=== PATIENT | female | born 1935 | race Caucasian/White ===

== ENCOUNTER 2018-07-16 16:37 | Inpatient (IN) ==
--- NOTE | 2018-07-16 17:22 | XR ---
EXAM DATE: 07/16/2018 5:07 PM EDT AGE/SEX: 83 years / Female INDICATIONS: Short of breath for 2 days. CLINICAL DATA: This is the patient's initial encounter. Patient reports that signs and symptoms have been present for 2 days and indicates a pain score of 0/10. MEDICAL/SURGICAL HISTORY: Diabetes mellitus type II. Hiatal hernia. Hypertension. . Hiatal he rnia repair. COMPARISON: No prior exams available for comparison. FINDINGS: Mild diffuse interstitial prominence and senescent changes. Mild airspace disease at the left lung ba se. Cardiac silhouette is mildly enlarged. Pulmonary vascularity is within normal limits. Bony thorax is intact. CONCLUSION: 1. Senescent changes with mild airspace disease at the left lung base which may reflect atelectasis. 2. Compensated cardiomegaly. Electronically signed by: Krishna Ramon MD 07/16/2018 5:21 PM EDT
[2018-07-16 17:44] LABS: Baso # (Auto) 0.1 th/mm3 (0.0-0.2); Baso % (Auto) 0.7 % (0.0-2.0); Eos # (Auto) 0.1 th/mm3 (0.0-0.4); Eos % (Auto) 1.4 % (0.0-4.0); Hematocrit 32.5 % (35.0-46.0); Hemoglobin 10.7 gm/dL (11.6-15.3); Lymph # (Auto) 1.6 th/mm3 (1.0-4.8); Lymph % (Auto) 19.8 % (9.0-44.0); Mean Corpuscular Hemoglobin 28.6 pg (27.0-34.0); Mean Corpuscular Volume 86.7 fL (80.0-100.0); Mean Platelet Volume 8.6 fL (7.0-11.0); Mono # (Auto) 0.8 th/mm3 (0.0-0.9); Mono % (Auto) 9.6 % (0.0-8.0); Neut # (Auto) 5.4 th/mm3 (1.8-7.7); Neut % (Auto) 68.5 % (16.0-70.0); Platelet Count 307 th/mm3 (150-450); Red Blood Count 3.75 mil/mm3 (4.00-5.30); Red Cell Distribution Width 14.3 % (11.6-17.2); White Blood Count 7.9 th/mm3 (4.0-11.0)
--- NOTE | 2018-07-16 17:44 | ED ---
HPI General Chief complaint: Recheck/Abnormal Lab/Rx Stated complaint: sent Time Seen by Provider: 07/16/18 16:59 History of Present Illness HPI narrative: 83-year-old female brought in by her granddaughter, sent in by a primary care physician for evaluation of A. fib with RVR. The patient reports that she believes she was diagnosed with A. fib about a year ago, however is not on any anticoagulants or any medications for rate control. She is from [place] and is here visiting her family. She has no local physicians. She states that for the last 2 days or so she has been having generalized weakness, dyspnea at rest worse with exertion, and orthopnea. She does take Lasix at home. She did note some bilateral lower extremity edema, however it seems improved today. The patient's granddaughter took her to her own primary care physician where they did an EKG and noted her to be in A. fib with RVR with a rate of 130s. Patient denies fevers or recent illness. No cough or hemoptysis. Related Data Home Medications Medication Instructions Recorded Confirmed amlodipine mg PO DAILY 07/16/18 atorvastatin 20 mg PO DAILY 07/16/18 07/16/18 furosemide 20 mg PO DAILY 07/16/18 07/16/18 potassium chloride 20 meq PO DAILY 07/16/18 07/16/18 Allergies Allergy/AdvReac Type Severity Reaction Status Date / Time oxycodone AdvReac Severe Vomiting Verified 07/16/18 17:34 Review of Systems ROS: all other systems reviewed are negative [facility] Medical History Medical History Diabetes (Acute) HTN (hypertension) (Acute) High cholesterol (Acute) Social History Social History Substance History: No History of Abuse Smoking Status: Never smoker How Often Do You Have a Drink Containing Alcohol: Never Recent Travel in [facility] within the Last 8 Weeks: No Recent Out of Country Travel within the Last 8 Weeks: No Immunization History Tetanus Immunization: >5 Years Exam Narrative Exam Narrative: GENERAL: Well-developed, well-nourished, pleasant, sitting comfortably on stretcher, no apparent distress. SKIN: Focused skin assessment warm/dry. HEAD: Atraumatic. Normocephalic. EYES: Pupils equal and round. No scleral icterus. No injection or drainage. ENT: No nasal bleeding or discharge. Mucous membranes pink and moist. NECK: Trachea midline. No JVD. CARDIOVASCULAR: Irregularly irregular, tachycardic, rate 130s. RESPIRATORY: No accessory muscle use. Clear to auscultation. Breath sounds equal bilaterally. GASTROINTESTINAL: Abdomen soft, non-tender, nondistended. MUSCULOSKELETAL: No obvious deformities. No clubbing. No cyanosis. No edema. NEUROLOGICAL: Awake and alert. No obvious cranial nerve deficits. Motor grossly within normal limits. Normal speech. PSYCHIATRIC: Appropriate mood and affect; insight and judgment normal. Course Initial Documented Vital Signs Temperature 97.9 F 07/16/18 16:49 Pulse Rate 133 H 07/16/18 16:49 Respiratory Rate 20 07/16/18 16:49 Blood Pressure 130/83 07/16/18 16:49 Pulse Oximetry 94 L 07/16/18 16:49 Last Documented Vital Signs Temperature 97.9 F 07/16/18 16:49 Pulse Rate 115 H 07/16/18 20:25 Respiratory Rate 18 07/16/18 20:25 Blood Pressure 145/94 H 07/16/18 20:25 Pulse Oximetry 96 07/16/18 20:25 Medical Decision Making MDM Narrative Medical decision making narrative: Labs, vitals, and imaging studies were reviewed and were reviewed with the patient and the patient's granddaughter. Labs are remarkable for slight renal insufficiency which the patient reports she is well aware of. She also has a slight anemia with a hemoglobin of 10.7. BNP is in the 500s. CT pulmonary angiogram: 1. No pulmonary embolism 2. Small right lung nodules can be followed if persistent following resolution of the patient's acute findings 3. Moderate bilateral pleural effusions, right greater than left. The patient and the patient's granddaughter were made aware of all findings and were provided a copy of the CT pulmonary angiogram report. The patient was initially given 10 mg of IV Cardizem as she presented with A. fib with RVR with a rate in the 130s. Her rate improved to about 100-110 bpm. On reassessment, the patient's heart rate returned once again to 130s. She will be given another dose of 10 mg of IV Cardizem followed by an oral dose of long-acting Cardizem. She will also be given 40 mg of IV Lasix. She will be admitted for further treatment and evaluation of A. fib with RVR, bilateral pleural effusions, shortness of breath. Case discussed with hospitalist Dr. Witt who will admit the patient to her service. Medical Screen Exam Complete: Yes Emergency Medical Condition: Yes Lab Data Result diagrams: 07/16/18 17:20 07/16/18 17:20 Lab Results 07/16/18 07/16/18 07/16/18 Range/Units 17:20 17:20 17:20 WBC 7.9 (4.0-11.0) th/mm3 RBC 3.75 L (4.00-5.30) mil/mm3 Hgb 10.7 L (11.6-15.3) gm/dL Hct 32.5 L (35.0-46.0) % MCV 86.7 (80.0-100.0) fL MCH 28.6 (27.0-34.0) pg MCHC 33.0 (32.0-36.0) % RDW 14.3 (11.6-17.2) % Plt Count 307 (150-450) th/mm3 MPV 8.6 (7.0-11.0) fL Neut % (Auto) 68.5 (16.0-70.0) % Lymph % (Auto) 19.8 (9.0-44.0) % [place] % (Auto) 9.6 H (0.0-8.0) % Eos % (Auto) 1.4 (0.0-4.0) % Baso % (Auto) 0.7 (0.0-2.0) % Neut # (Auto) 5.4 (1.8-7.7) th/mm3 Lymph # (Auto) 1.6 (1.0-4.8) th/mm3 [place] # (Auto) 0.8 (0.0-0.9) th/mm3 Eos # (Auto) 0.1 (0.0-0.4) th/mm3 Baso # (Auto) 0.1 (0.0-0.2) th/mm3 WBC Differential . Differential Comment Auto diff final PT 10.6 (9.8-11.6) sec INR 1.0 Ratio APTT 25.0 (24.3-30.1) sec Sodium 141 (136-145) meq/L Potassium 3.7 (3.5-5.1) meq/L Chloride 104 (98-107) meq/L Carbon Dioxide 25.3 (21.0-32.0) meq/L Anion Gap 12 (5-15) meq/L BUN 18 (7-18) mg/dL Creatinine 1.40 H (0.50-1.00) mg/dL Estimated GFR 36 L (>89) mL/min Random Glucose 118 H (74-106) mg/dL Calcium 8.7 (8.5-10.1) mg/dL Total Bilirubin 0.5 (0.2-1.0) mg/dL AST 26 (15-37) U/L ALT 41 (10-53) U/L Alkaline Phosphatase 114 (45-117) U/L Total Creatine Kinase 102 (26-192) U/L CK-MB (CK-2) 3.0 (0.5-3.6) ng/mL Troponin I Less than 0.02 L (0.02-0.05) ng/mL B-Natriuretic Peptide (0-100) pg/mL Total Protein 8.2 (6.4-8.2) g/dL Albumin 3.8 (3.4-5.0) g/dL Lipase 39 L (73-393) U/L 07/16/18 Range/Units 17:20 WBC (4.0-11.0) th/mm3 RBC (4.00-5.30) mil/mm3 Hgb (11.6-15.3) gm/dL Hct (35.0-46.0) % MCV (80.0-100.0) fL MCH (27.0-34.0) pg MCHC (32.0-36.0) % RDW (11.6-17.2) % Plt Count (150-450) th/mm3 MPV (7.0-11.0) fL Neut % (Auto) (16.0-70.0) % Lymph % (Auto) (9.0-44.0) % [place] % (Auto) (0.0-8.0) % Eos % (Auto) (0.0-4.0) % Baso % (Auto) (0.0-2.0) % Neut # (Auto) (1.8-7.7) th/mm3 Lymph # (Auto) (1.0-4.8) th/mm3 [place] # (Auto) (0.0-0.9) th/mm3 Eos # (Auto) (0.0-0.4) th/mm3 Baso # (Auto) (0.0-0.2) th/mm3 WBC Differential Differential Comment PT (9.8-11.6) sec INR Ratio APTT (24.3-30.1) sec Sodium (136-145) meq/L Potassium (3.5-5.1) meq/L Chloride (98-107) meq/L Carbon Dioxide (21.0-32.0) meq/L Anion Gap (5-15) meq/L BUN (7-18) mg/dL Creatinine (0.50-1.00) mg/dL Estimated GFR (>89) mL/min Random Glucose (74-106) mg/dL Calcium (8.5-10.1) mg/dL Total Bilirubin (0.2-1.0) mg/dL AST (15-37) U/L ALT (10-53) U/L Alkaline Phosphatase (45-117) U/L Total Creatine Kinase (26-192) U/L CK-MB (CK-2) (0.5-3.6) ng/mL Troponin I (0.02-0.05) ng/mL B-Natriuretic Peptide 578 H (0-100) pg/mL Total Protein (6.4-8.2) g/dL Albumin (3.4-5.0) g/dL Lipase (73-393) U/L Imaging Data Radiologist's impression: Chest X-Ray 07/16/18 17:07 CONCLUSION: 1. Senescent changes with mild airspace disease at the left lung base which may reflect atelectasis. 2. Compensated cardiomegaly. Chest CTA 07/16/18 18:22 CONCLUSION: 1. No pulmonary embolism 2. Small right lung nodules can be followed if persistent following resolution of the patient's acute findings ECG Data Attestation: I personally reviewed and interpreted this ECG as follows: (A. fib , rate 137, normal axis, normal intervals, nonspecific ST and T wave abnormalities.) Discharge Plan Discharge Disposition Patient Disposition: 30 Still Patient Discharge Details Diagnosis: Atrial fibrillation with RVR, Pleural effusion, Shortness of breath, Pulmonary nodule Physicians Team ED Provider: Hugh Justin Primary Care Provider: Primary Care Physici,No Rxs /Orders / Referrals /Forms Prescriptions: No Action atorvastatin 20 mg Tablet 20 mg PO DAILY RF: 0 amlodipine 2.5 mg Tablet PO DAILY RF: 0 furosemide 20 mg Tablet 20 mg PO DAILY RF: 0 potassium chloride 20 mEq Tablet Extended Release 20 meq PO DAILY RF: 0 Status ED Status: With Doctor
[2018-07-16 17:52] LABS: Prothrombin Time 10.6 sec (9.8-11.6)
[2018-07-16 18:02] LABS: Albumin 3.8 g/dL (3.4-5.0); Anion Gap 12 meq/L (5-15); Aspartate Aminotransferase 26 U/L (15-37); Blood Urea Nitrogen 18 mg/dL (7-18); Calcium 8.7 mg/dL (8.5-10.1); Carbon Dioxide 25.3 meq/L (21.0-32.0); Chloride 104 meq/L (98-107); Glomerular Filtration Rate 36 mL/min (>89); Glucose,Random 118 mg/dL (74-106); Lipase 39 U/L (73-393); Potassium 3.7 meq/L (3.5-5.1); Sodium 141 meq/L (136-145)
[2018-07-16 18:07] LABS: Alanine Aminotransferase 41 U/L (10-53); Alkaline Phosphatase 114 U/L (45-117); Creatine Kinase 102 U/L (26-192); Total Protein 8.2 g/dL (6.4-8.2)
--- NOTE | 2018-07-16 19:51 | CT ---
EXAM DATE: 07/16/2018 6:42 PM EDT AGE/SEX: 83 years / Female INDICATIONS: Shortness of breath. CLINICAL DATA: This is the patient's initial encounter. Patient reports that signs and symptoms have been present for 1 day and indicates a pain score of 2/10. MEDICAL/SURGICAL HISTORY: Diabetes. Hypertension. None. RADIATION DOSE: 10.67 CTDI (mGy) COMPARISON: No prior exams available for comparison. TECHNIQUE: Volumetric scanning was performed using a multi-row detector CT scanner during bolus infu asif of 45 ml Visipaque 320 (iodixanol) nonionic water-soluble contrast as a single exam dose. The d sowmya was post processed with a variety of visualization algorithms including full volume maximum inten sity projection and sliding thin slab reformation. Using automated exposure control and adjustment o f the mA and/or kV according to patient size, radiation dose was kept as low as reasonably achievable to obtain optimal diagnostic quality images. DICOM format image data is available electronically fo r review and comparison. FINDINGS: Pulmonary Arteries: No filling defects are seen in the pulmonary arteries out to the subsegmental ve ssels. The left and right pulmonary arteries are normal in diameter. Lung: Compressive atelectasis in the lung bases adjacent to effusions. 10 mm nodular density in the medial central right lung base. 7-8 mm nodule in the posterior right upper lobe Effusion: Moderate bilateral larger on the right than the left Mediastinum: Cardiac enlargement. Atherosclerotic calcifications, including within the coronaries. N o evidence of adenopathy or mass. Other: The axilla is unremarkable. CONCLUSION: 1. No pulmonary embolism 2. Small right lung nodules can be followed if persistent following resolution of the patient's acut e findings Electronically signed by: José Miguel Suresh MD 07/16/2018 7:49 PM EDT
[2018-07-16] MEDS ORDERED: dilTIAZem CD 120 MG Capsule PO ONE (20:21)
[2018-07-16] MEDS ORDERED: Acetaminophen 325 MG Tablet PO PRN (20:47)
[2018-07-16] MEDS ORDERED: Bisacodyl 10 MG Supp RECTAL PRN (20:47)
--- NOTE | 2018-07-16 21:09 | P.HPIM ---
History of Present Illness Primary Care Physician: No Primary Care Physician History of Present Illness: This is an 83-year-old female with a PMH of HTN and Hyperlipidemia who was referred to the ER from her doctor's office for A. fib with RVR. Pt reports c/ o of SOB and generalized weakness for 2-3 days, here visiting granddaughter who noted lower extremity edema and progressive SOB. Seen by Dr. Torres in office today and found to have A-fib w/ RVR, HR 120's. Pt reports h/o A-fib back in December 2017 while in [facility] she was found to be in A-fib at her doctor's office, however had resolved by the time she got to the ER, not on any medications. Denies chest pain. On arrival, BP 130/83, HR 133, O2 sat 94% on RA, Afebrile. CBC unremarkable. INR 1.0. Creatinine 1.40, no previous labs for comparison. Troponin negative. BNP 578. CXR with atelectasis left lung base, cardiomegaly. CTA Chest no PE, small right lung nodules. S/p Cardizem 10mg IV x2 in ER, remains in A-fib w/ HR 100-110's. Denies any complaints except for SOB w/ exertion. - Diagnosis (1) Atrial fibrillation with RVR (2) HARITHA (acute kidney injury) (3) Pleural effusion Review of Systems PAST FAMILY HISTORY: Reviewed. No h/o DM or CAD All other systems reviewed negative except as stated in HPI PMFSH - History History Provided By: Patient - Medical History Medical History: Medical History (Last Updated 07/16/18 @ 17:27 by Ellie Montana RN) Diabetes HTN (hypertension) High cholesterol - Tobacco History Smoking Status: Never smoker - Alcohol History How Often Do You Have a Drink Containing Alcohol: Never - Substance Use History Substance History: No History of Abuse - Travel History Recent Travel in the [place] Within the Last 8 Weeks: No Recent Travel Out of the Country Within the Last 8 Weeks: No - Immunization History Tetanus Immunization: >5 Years Medications and Allergies Active Medications: Active Medications Acetaminophen (Tylenol) 650 mg PO Q4H PRN PRN Reason: Temp > 100.4 Al Hydroxide/Mg Hydroxide (Milk Of Magnesia Liq) 30 ml PO Q12H PRN PRN Reason: Mild Constipation Atorvastatin Calcium (Lipitor) 20 mg PO DAILY [facility] Bisacodyl (Dulcolax Supp) 10 mg RECTAL DAILY PRN PRN Reason: SEVERE CONSITIPATION Heparin Sodium (Porcine) (Heparin Inj) 5,000 units SQ Q12H FLORI Sodium Chloride (Ns Inj) 1,000 mls @ 100 mls/hr IV.CONT .Q10H FLORI Diltiazem HCl 125 mg/ Sodium (Chloride) 125 mls @ 5 mls/hr IV.CONT TITRATE PRN ; Protocol PRN Reason: Per Protocol Lactulose (Lactulose Liq) 30 ml PO DAILY PRN PRN Reason: SEVERE CONSITIPATION Ondansetron HCl (Zofran Inj) 4 mg IV.PUSH Q6H PRN PRN Reason: NAUSEA OR VOMITING Senna/Docusate Sodium (Iraida-Colace) 1 tab PO BID [facility] Sennosides (Senokot) 17.2 mg PO Q12H PRN PRN Reason: Moderate Constipation Sodium Chloride (Ns Flush) 2 ml IV.FLUSH PRN PRN PRN Reason: FLUSH AFTER USING IV ACCESS Allergies Allergy/AdvReac Type Severity Reaction Status Date / Time oxycodone AdvReac Severe Vomiting Verified 07/16/18 17:34 Home Medications Medication Instructions Recorded Confirmed Type amlodipine mg PO DAILY 07/16/18 History atorvastatin 20 mg PO DAILY 07/16/18 07/16/18 History furosemide 20 mg PO DAILY 07/16/18 07/16/18 History potassium chloride 20 meq PO DAILY 07/16/18 07/16/18 History Exam Vital signs: Vital Signs 07/16/18 16:49 07/16/18 17:21 07/16/18 17:30 Temperature 97.9 F Pulse Rate 133 H 133 H 100 H Respiratory Rate 20 36 H 26 H Blood Pressure 130/83 143/80 H 128/60 Pulse Oximetry 94 L 93 L 94 L 07/16/18 18:56 07/16/18 18:59 07/16/18 20:25 Temperature Pulse Rate 106 H 115 H 115 H Respiratory Rate 24 18 18 Blood Pressure 123/69 137/90 145/94 H Pulse Oximetry 93 L 97 96 Intake & Output 07/16/18 07/16/18 07/17/18 06:59 18:59 06:59 Weight 58.606 kg Narrative: PE: GENERAL: Very pleasant elderly white female in no acute distress. Granddaughter at bedside. SKIN: Focused skin assessment warm and dry. HEENT: PERRLA, EOMI. No scleral icterus or conjunctival pallor. No lid lag or facial droop. CARDIOVASCULAR: Irregularly irregular, in A. fib. No obvious murmurs to auscultation. No chest tenderness to palpation. RESPIRATORY: No obvious rhonchi or wheezing. Clear to auscultation. Breath sounds equal bilaterally. GASTROINTESTINAL: Abdomen soft, non-tender, nondistended. BS normal. MUSCULOSKELETAL: Extremities without clubbing, cyanosis, +2 edema. No obvious deformities. NEUROLOGICAL: Awake, alert and oriented x4. No focal neurologic deficits. Moving both upper and lower extremities spontaneously. PSYCHIATRIC: Appropriate mood and affect. Insight and judgment normal. Results - Labs CBC & Chem 7: 07/16/18 17:20 07/16/18 17:20 Labs: Short CBC 07/16/18 Range/Units 17:20 WBC 7.9 (4.0-11.0) th/mm3 Hgb 10.7 L (11.6-15.3) gm/dL Hct 32.5 L (35.0-46.0) % Plt Count 307 (150-450) th/mm3 BMP 07/16/18 17:20 Sodium 141 Potassium 3.7 Chloride 104 Carbon Dioxide 25.3 BUN 18 Creatinine 1.40 H Calcium 8.7 Cardiac Enzymes 07/16/18 Range/Units 17:20 Total Creatine Kinase 102 (26-192) U/L CK-MB (CK-2) 3.0 (0.5-3.6) ng/mL Troponin I Less than 0.02 L (0.02-0.05) ng/mL Liver Function 07/16/18 Range/Units 17:20 Total Bilirubin 0.5 (0.2-1.0) mg/dL AST 26 (15-37) U/L ALT 41 (10-53) U/L Alkaline Phosphatase 114 (45-117) U/L Albumin 3.8 (3.4-5.0) g/dL - Imaging Impressions Chest X-Ray 07/16/18 17:07 CONCLUSION: 1. Senescent changes with mild airspace disease at the left lung base which may reflect atelectasis. 2. Compensated cardiomegaly. Chest CTA 07/16/18 18:22 CONCLUSION: 1. No pulmonary embolism 2. Small right lung nodules can be followed if persistent following resolution of the patient's acute findings Caprini VTE Risk Assessment Caprini VTE Risk Assessment: No/Low Risk (score <= 1) Caprini Risk Assessment Model: Point Value = 1 Point Value = 2 Point Value = 3 Point Value = 5 Age 41-60 Minor surgery BMI > 25 kg/m2 Swollen legs Varicose veins or History of unexplained or recurrent spontaneous Oral contraceptives or hormone replacement Sepsis (< 1 month) Serious lung disease, including pneumonia (< 1 month) Abnormal pulmonary function Acute myocardial infarction Congestive heart failure (< 1 month) History of inflammatory bowel disease Medical patient at bed rest Age 61-74 Arthroscopic surgery Major open surgery (> 45 min) Laparoscopic surgery (> 45 min) Malignancy Confined to bed (> 72 hours) Immobilizing plaster cast Central venous access Age >= 75 History of VTE Family history of VTE Factor V Leiden Prothrombin [id number] Lupus anticoagulant Anticardiolipin antibodies Elevated serum homocysteine Heparin-induced thrombocytopenia Other congenital or acquired thrombophilia Stroke (< 1 month) Elective arthroplasty Hip, pelvis, or leg fracture Acute spinal cord injury (< 1 month) Prophylaxis Regimen: Total Risk Factor Score Risk Level Prophylaxis Regimen 0-1 Low Early ambulation 2 Moderate Order ONE of the following: *Sequential Compression Device (SCD) *Heparin 5000 units SQ BID 3-4 Higher Order ONE of the following medications: *Heparin 5000 units SQ TID *Enoxaparin/Lovenox 40 mg SQ daily (WT < 150 kg, CrCl > 30 mL/min) *Enoxaparin/Lovenox 30 mg SQ daily (WT < 150 kg, CrCl > 10-29 mL/min) *Enoxaparin/Lovenox 30 mg SQ BID (WT < 150 kg, CrCl > 30 mL/min) AND/OR *Sequential Compression Device (SCD) 5 or more Highest Order ONE of the following medications: *Heparin 5000 units SQ TID (Preferred with Epidurals) *Enoxaparin/Lovenox 40 mg SQ daily (WT < 150 kg, CrCl > 30 mL/min) *Enoxaparin/Lovenox 30 mg SQ daily (WT < 150 kg, CrCl > 10-29 mL/min) *Enoxaparin/Lovenox 30 mg SQ BID (WT < 150 kg, CrCl > 30 mL/min) AND *Sequential Compression Device (SCD) Assessment and Plan - Assessment (1) Atrial fibrillation with RVR Code(s): I48.91 - Unspecified atrial fibrillation Status: Acute (2) HARITHA (acute kidney injury) Code(s): N17.9 - Acute kidney failure, unspecified Status: Acute (3) Pleural effusion Code(s): J90 - Pleural effusion, not elsewhere classified Status: Acute - Plan A/P: 1. A-fib: w/ RVR, h/o RVR in December 2017, resolved spontaneously, now w/ HR 130 's, s/p Cardizem 10mg IV x2, HR still elevated, will start Cardizem gtt, admit to [facility], telemetry, initial trop negative, check serial cardiac enzymes to r/o ischemia, check Echo to eval for valvular abnormality/cardiomyopathy. ASA. Consult Cardiology for further recommendations. 2. Pleural Effusions: c/o SOB w/ exertion, BNP 578, CXR reviewed +mild pleural effusions, s/p Lasix in ER, will continue w/ diuresis as needed, monitor I/O, check Echo as above. 3. HARITHA: Creatinine 1.40, no previous labs for comparison, check UA to eval for UTI, monitor I/O, caution w/ IVF in light of fluid overload, repeat labs in am. 4. DVT Prophylaxis: Heparin sq 5. Social work for d/c planning as needed. 6. Case discussed w/ ER physician at length, labs/records/imaging reviewed by me.
[2018-07-16] MEDS: dilTIAZem Inj 125 MG in Sodium Chlor 0.9% Inj 100 ML IV.CONT PRN (23:09)
[2018-07-16] MEDS: Senna/Docusate Sodium 8.6/50 MG Tablet PO SCH (23:13)
[2018-07-17] MEDS: Sod Chloride 0.9% Inj 1,000 ML IV.CONT SCH ×2 (00:09→06:38)
[2018-07-17 00:24] LABS: Bilirubin,Urine Negative (Negative); Clarity,Urine Clear (Clear); Color,Urine Colorless (Yellw/Straw); Glucose,Urine (UA) Negative (Negative); Leukocyte Esterase,Urine Trace (Negative); Mucus,Urine Few /lpf (Occasional); Nitrite,Urine Negative (Negative); Specific Gravity,Urine 1.005 (1.002-1.035); Squamous Epithelial Cell,Urine <1 /hpf (0-5)
[2018-07-17] MEDS: Senna/Docusate Sodium 8.6/50 MG Tablet PO SCH ×2 (08:50→20:42)
[2018-07-17] MEDS ORDERED: Heparin - SQ 10,000 UNITS/ML Vial SQ SCH (09:00)
[2018-07-17 09:51] LABS: Baso % (Auto) 0.6 % (0.0-2.0); Eos # (Auto) 0.1 th/mm3 (0.0-0.4); Eos % (Auto) 2.1 % (0.0-4.0); Hematocrit 28.7 % (35.0-46.0); Hemoglobin 9.6 gm/dL (11.6-15.3); Lymph # (Auto) 0.8 th/mm3 (1.0-4.8); Lymph % (Auto) 14.8 % (9.0-44.0); Mean Corpuscular HGB Conc 33.3 % (32.0-36.0); Mean Corpuscular Hemoglobin 28.3 pg (27.0-34.0); Mean Corpuscular Volume 84.9 fL (80.0-100.0); Mean Platelet Volume 8.8 fL (7.0-11.0); Mono # (Auto) 0.5 th/mm3 (0.0-0.9); Mono % (Auto) 9.6 % (0.0-8.0); Neut # (Auto) 3.9 th/mm3 (1.8-7.7); Neut % (Auto) 72.9 % (16.0-70.0); Platelet Count 271 th/mm3 (150-450); Red Blood Count 3.38 mil/mm3 (4.00-5.30); Red Cell Distribution Width 14.1 % (11.6-17.2); White Blood Count 5.4 th/mm3 (4.0-11.0)
[2018-07-17] MEDS: dilTIAZem Inj 125 MG in Sodium Chlor 0.9% Inj 100 ML IV.CONT PRN (10:00)
[2018-07-17 10:11] LABS: Alanine Aminotransferase 32 U/L (10-53); Albumin 3.3 g/dL (3.4-5.0); Anion Gap 11 meq/L (5-15); Aspartate Aminotransferase 19 U/L (15-37); Blood Urea Nitrogen 16 mg/dL (7-18); Calcium 8.5 mg/dL (8.5-10.1); Carbon Dioxide 27.7 meq/L (21.0-32.0); Chloride 104 meq/L (98-107); Glomerular Filtration Rate 38 mL/min (>89); Glucose,Random 127 mg/dL (74-106); Potassium 3.3 meq/L (3.5-5.1); Sodium 143 meq/L (136-145)
[2018-07-17 10:13] LABS: Alkaline Phosphatase 102 U/L (45-117); Total Protein 7.1 g/dL (6.4-8.2)
--- NOTE | 2018-07-17 12:11 | MB ---
cc: Ranjit Ramos DO DATE: 07/18/2018 REASON FOR CONSULTATION: Atrial fibrillation with rapid ventricular response. HISTORY OF PRESENT ILLNESS: Helena Chris is a pleasant 83-year-old female who presented to [facility] due to shortness of breath. She currently lives in [place] and was down visiting her granddaughter, and her granddaughter started noticing that she was more short of breath, had generalized weakness and increased lower extremity edema. She was seen in Dr. Torres's office today and found to have atrial fibrillation with rapid ventricular response with a heart rate in the 120s. Apparently, she has a history of questionable Afib. She saw her doctor and was sent to the ER for arrhythmia, but upon arriving there she was in sinus rhythm, patient is unsure if this was Afib. She denies any chest pain. Since her heart rate has been controlled she feels back to normal. She was placed on a Cardizem drip, which now has her heart rate in the 80s. PAST MEDICAL HISTORY: 1. Diabetes mellitus. 2. Hypertension. 3. Hyperlipidemia. PAST SURGICAL HISTORY: Denies. ALLERGIES: OXYCODONE. MEDICATIONS: 1. Potassium 20 mEq daily. 2. Lasix 20 mg daily. 3. Lipitor 20 mg daily. 4. Norvasc 2.5 mg daily. FAMILY HISTORY: Denies premature coronary artery disease or sudden cardiac within the family. SOCIAL HISTORY: Denies alcohol, tobacco or drug abuse. REVIEW OF SYSTEMS: Fourteen systems were reviewed including osteopathic, pertinent positives and negatives above, otherwise negative. PHYSICAL EXAMINATION: VITAL SIGNS: Temperature 98.3, heart rate 70, blood pressure 113/66, respirations 18, pulse oximetry 96% on 3 liters. GENERAL: The patient appears well, in no acute distress, alert, awake and oriented x3. HEENT: Extraocular muscles intact. Mucous membranes moist. NECK: Supple. No JVD at 45 degrees. No carotid bruits heard bilaterally. Carotid upstroke is brisk in nature. HEART: Irregularly irregular. Positive first and second heart sounds with no noted murmurs, gallops or rubs. LUNGS: Decreased breath sounds at bilateral bases. ABDOMEN: Soft, nontender, nondistended, no organomegaly noted. EXTREMITIES: Show trace edema bilaterally. NEUROLOGIC: No focal deficits. SKIN: Warm, dry and intact. OSTEOPATHIC: Mild lordosis. No kyphoscoliosis or paraspinal tender points. LABORATORY DATA: Hemoglobin 9.6, hematocrit 28.7, platelets 271,000. Potassium 3.3, BUN 16, creatinine 1.34. Troponin negative x3. STUDIES: Electrocardiogram (03/16/2018 at 17:16): Atrial fibrillation with rapid ventricular response, nonspecific ST-T wave changes. IMPRESSION: 1. Atrial fibrillation with rapid ventricular response, which appears to be possibly new onset. 2. Hypertension. 3. Hyperlipidemia. 4. Diabetes mellitus. 5. 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 RECOMMENDATIONS: 1. Ms. Chris presented with atrial fibrillation with rapid ventricular response and there is a question if she had a previous episode of this before. This is most likely age-induced as well as having risk factors with hypertension and diabetes mellitus. 2. Her heart rates have been controlled on Cardizem at 10 mg/hour and so this will be changed to Cardizem 60 mg every 6 hours. If stable on this, she will be discharged home on Cardizem-CD 240 mg daily. 3. She has a CHADS-VASc score of 5 (hypertension, diabetes, age x2 and gender) and because of this, she will be recommended anticoagulation. We will plan on placing her on Eliquis. 4. We will check a 2-D echo to look at her overall left ventricular function, cardiac structure and possible valvopathies. 5. She has received 1 dose of Lasix and appears compensated at this time. Heart failure is most likely due to the atrial fibrillation with rapid ventricular response more than anything. 6. If stable later this afternoon or tomorrow on current medications, she can be discharged home for followup with her land development project manager in [place]. Thank you for allowing me to see Helena Chris. If there are any questions, please do not hesitate to call. Ranjit Ramos DO VGP/sb , 11:47 AM , 11:58 AM [place]
[2018-07-17] MEDS: dilTIAZem 60 MG Tablet PO SCH ×3 (12:35→20:42)
--- NOTE | 2018-07-17 12:36 | ECHRPT ---
Indication: Atrial Fib and Flutter CONCLUSIONS Normal left ventricular size. Mild concentric left ventricular hypertrophy. The left ventricular systolic function is normal with an estimated ejection fraction in the range o f 55-60%. The left atrial size is moderate to severely dilated Structurally normal mitral valve. Mild to moderate mitral valve regurgitation. Trileaflet aortic valve. Aortic valve sclerosis is present. There is moderate tricuspid regurgitation. The estimated pulmonary arterial pressure is 69 mmHg. BP: / HR: Rhythm: MEASUREMENTS (Male / Female) Normal Values Technical Quality:Good 2D ECHO LV Diastolic Diameter PLAX 3.8 cm 4.2 - 5.9 / 3.9 - 5.3 cm LV Systolic Diameter PLAX 2.9 cm IVS Diastolic Thickness 1.1 cm 0.6 - 1.0 / 0.6 - 0.9 cm LVPW Diastolic Thickness 1.1 cm 0.6 - 1.0 / 0.6 - 0.9 cm LV Relative Wall Thickness 0.6 RV Internal Dim ED PLAX 3.5 cm LVOT Diameter 1.7 cm Aortic Root Diameter 2.2 cm LA Systolic Diameter LX 4.4 cm 3.0 - 4.0 / 2.7 - 3.8 cm DOPPLER AV Peak Velocity 178.0 cm/s AV Peak Gradient 12.7 mmHg LVOT Peak Velocity 100.0 cm/s LVOT Peak Gradient 4.0 mmHg AV Area Cont Eq pk 1.3 cm MV Peak Velocity 245.0 cm/s MV Peak Gradient 24.0 mmHg MV Mean Velocity 157.0 cm/s MV Mean Gradient 12.0 mmHg LV E' Lateral Velocity 11.1 cm/s LV E' Septal Velocity 3.7 cm/s TR Peak Velocity 368.0 cm/s TR Peak Gradient 54.2 mmHg Right Atrial Pressure 15.0 mmHg Pulmonary Artery Systolic Pressu 69.2 mmHg Right Ventricular Systolic Press 69.2 mmHg PV Peak Velocity 59.4 cm/s PV Peak Gradient 1.4 mmHg FINDINGS LEFT VENTRICLE Normal left ventricular size. Mild concentric left ventricular hypertrophy. The left ventricular systolic function is normal with an estimated ejection fraction in the range o f 55-60%. RIGHT VENTRICLE Normal right ventricular size and systolic function. LEFT ATRIUM The left atrial size is moderate to severely dilated RIGHT ATRIUM The right atrial size is normal. ATRIAL SEPTUM Normal atrial septal thickness without atrial level shunting by limited color doppler interrogation. AORTA The aortic root and proximal ascending aorta are normal in size on limited imaging. MITRAL VALVE Structurally normal mitral valve. Mild to moderate mitral valve regurgitation. AORTIC VALVE Trileaflet aortic valve. Aortic valve sclerosis is present. TRICUSPID VALVE There is moderate tricuspid regurgitation. The estimated pulmonary arterial pressure is 69 mmHg. PULMONARY VALVE Moderate pulmonary valve regurgitation. VESSELS The inferior vena cava was not well visualized. PERICARDIUM No pericardial effusion. Domenic Hatfield MD, FACC (Electronically Signed) Final Date:17 July 2018 12:35
--- NOTE | 2018-07-17 14:27 | P.PNIM ---
Subjective Interval history: Patient seen earlier this morning. She reports she is feeling better. Heart rate better controlled. Physical Exam Vital signs: Vital Signs 07/16/18 16:49 07/16/18 17:21 07/16/18 17:30 Temperature 97.9 F Pulse Rate 133 H 133 H 100 H Respiratory Rate 20 36 H 26 H Blood Pressure 130/83 143/80 H 128/60 Pulse Oximetry 94 L 93 L 94 L 07/16/18 18:56 07/16/18 18:59 07/16/18 20:25 Temperature Pulse Rate 106 H 115 H 115 H Respiratory Rate 24 18 18 Blood Pressure 123/69 137/90 145/94 H Pulse Oximetry 93 L 97 96 07/16/18 23:00 07/17/18 00:00 07/17/18 01:00 Temperature 98.2 F Pulse Rate 106 H 104 H 86 Respiratory Rate 16 Blood Pressure 147/88 H Pulse Oximetry 94 L 07/17/18 02:00 07/17/18 03:00 07/17/18 04:00 Temperature 98.4 F Pulse Rate 95 H 95 H 81 Respiratory Rate 16 Blood Pressure 115/60 Pulse Oximetry 95 07/17/18 05:00 07/17/18 06:00 07/17/18 07:00 Temperature 98.3 F Pulse Rate 86 73 67 Respiratory Rate 18 Blood Pressure 113/66 Pulse Oximetry 96 07/17/18 08:00 07/17/18 09:00 07/17/18 10:00 Temperature Pulse Rate 96 H 88 92 H Respiratory Rate Blood Pressure Pulse Oximetry 07/17/18 11:00 07/17/18 12:00 07/17/18 13:00 Temperature 98.3 F Pulse Rate 83 80 75 Respiratory Rate 18 Blood Pressure 126/72 Pulse Oximetry 93 L Intake & Output 07/16/18 07/17/18 07/17/18 18:59 06:59 18:59 Intake Total 0 / 0 250 / 250 Output Total 1100 / 1100 Balance -1100 / -1100 250 / 250 Weight 58.606 kg 58 kg Intake: IV 250 / 250 Cardizem Inj 125 MG In NS Inj 250 / 250 100 ML @ 5 MG/HR 5 mls/hr IV. CONT TITRATE PRN Rx#:[id number] Oral 0 / 0 Output: Urine 1100 / 1100 Other: Date of Last Bowel Movement 07/16/18 Weight On Admission 58.6 kg Narrative: GENERAL: This is a well-nourished, well-developed patient, in no apparent distress. CARDIOVASCULAR: Normal rate and regular rhythm without murmurs, gallops, or rubs. RESPIRATORY: Air movement is fair. Diminished breath sounds bilaterally at the bases. GASTROINTESTINAL: Abdomen soft, non-tender, non-distended. Normal active bowel sounds MUSCULOSKELETAL: Extremities without cyanosis, or edema. NEURO: Alert & Oriented x4 to person, place, time, situation. Moves all ext x4 PSYCH: Appropriate mood and affect. Results - Labs CBC & Chem 7: 07/17/18 09:24 07/17/18 09:24 Laboratory Results - last 24 hr 07/16/18 07/16/18 07/16/18 17:20 17:20 17:20 WBC 7.9 RBC 3.75 L Hgb 10.7 L Hct 32.5 L MCV 86.7 MCH 28.6 MCHC 33.0 RDW 14.3 Plt Count 307 MPV 8.6 Neut % (Auto) 68.5 Lymph % (Auto) 19.8 [place] % (Auto) 9.6 H Eos % (Auto) 1.4 Baso % (Auto) 0.7 Neut # (Auto) 5.4 Lymph # (Auto) 1.6 [place] # (Auto) 0.8 Eos # (Auto) 0.1 Baso # (Auto) 0.1 WBC Differential . Differential Comment Auto diff final PT 10.6 INR 1.0 APTT 25.0 Sodium 141 Potassium 3.7 Chloride 104 Carbon Dioxide 25.3 Anion Gap 12 BUN 18 Creatinine 1.40 H Estimated GFR 36 L Random Glucose 118 H Calcium 8.7 Total Bilirubin 0.5 AST 26 ALT 41 Alkaline Phosphatase 114 Total Creatine Kinase 102 CK-MB (CK-2) 3.0 Troponin I Less than 0.02 L B-Natriuretic Peptide Total Protein 8.2 Albumin 3.8 Lipase 39 L Urine Color Urine Clarity Urine pH Ur Specific [place] Urine Protein Urine Glucose (UA) Urine Ketones Urine Occult Blood Urine Nitrate Urine Bilirubin Urine Urobilinogen Ur Leukocyte Esterase Urine RBC Urine WBC Ur Squamous Epith Cells Urine Mucus Micro UA Comment Ur Microscopic Review Urine Culture Comments 07/16/18 07/16/18 07/17/18 17:20 23:12 00:10 WBC RBC Hgb Hct MCV MCH MCHC RDW Plt Count MPV Neut % (Auto) Lymph % (Auto) [place] % (Auto) Eos % (Auto) Baso % (Auto) Neut # (Auto) Lymph # (Auto) [place] # (Auto) Eos # (Auto) Baso # (Auto) WBC Differential Differential Comment PT INR APTT Sodium Potassium Chloride Carbon Dioxide Anion Gap BUN Creatinine Estimated GFR Random Glucose Calcium Total Bilirubin AST ALT Alkaline Phosphatase Total Creatine Kinase CK-MB (CK-2) Troponin I Less than 0.02 L B-Natriuretic Peptide 578 H Total Protein Albumin Lipase Urine Color Colorless Urine Clarity Clear Urine pH 7.0 Ur Specific [place] 1.005 Urine Protein Negative Urine Glucose (UA) Negative Urine Ketones Negative Urine Occult Blood Negative Urine Nitrate Negative Urine Bilirubin Negative Urine Urobilinogen Less than 2 Ur Leukocyte Esterase Trace H Urine RBC Less than 1 Urine WBC 1 Ur Squamous Epith Cells <1 Urine Mucus Few H Micro UA Comment Culture not ind Ur Microscopic Review Not Reportable Urine Culture Comments Culture not ind 07/17/18 07/17/18 07/17/18 05:18 09:24 09:24 WBC 5.4 RBC 3.38 L Hgb 9.6 L Hct 28.7 L MCV 84.9 MCH 28.3 MCHC 33.3 RDW 14.1 Plt Count 271 MPV 8.8 Neut % (Auto) 72.9 H Lymph % (Auto) 14.8 [place] % (Auto) 9.6 H Eos % (Auto) 2.1 Baso % (Auto) 0.6 Neut # (Auto) 3.9 Lymph # (Auto) 0.8 L [place] # (Auto) 0.5 Eos # (Auto) 0.1 Baso # (Auto) 0.0 WBC Differential . Differential Comment Auto diff final PT INR APTT Sodium 143 Potassium 3.3 L Chloride 104 Carbon Dioxide 27.7 Anion Gap 11 BUN 16 Creatinine 1.34 H Estimated GFR 38 L Random Glucose 127 H Calcium 8.5 Total Bilirubin 0.7 AST 19 ALT 32 Alkaline Phosphatase 102 Total Creatine Kinase CK-MB (CK-2) Troponin I Less than 0.02 L B-Natriuretic Peptide Total Protein 7.1 D Albumin 3.3 L Lipase Urine Color Urine Clarity Urine pH Ur Specific [place] Urine Protein Urine Glucose (UA) Urine Ketones Urine Occult Blood Urine Nitrate Urine Bilirubin Urine Urobilinogen Ur Leukocyte Esterase Urine RBC Urine WBC Ur Squamous Epith Cells Urine Mucus Micro UA Comment Ur Microscopic Review Urine Culture Comments - Imaging Impressions Chest X-Ray 07/16/18 17:07 CONCLUSION: 1. Senescent changes with mild airspace disease at the left lung base which may reflect atelectasis. 2. Compensated cardiomegaly. Chest CTA 07/16/18 18:22 CONCLUSION: 1. No pulmonary embolism 2. Small right lung nodules can be followed if persistent following resolution of the patient's acute findings Assessment and Plan - Assessment (1) Atrial fibrillation with RVR Code(s): I48.91 - Unspecified atrial fibrillation Status: Acute (2) HARITHA (acute kidney injury) Code(s): N17.9 - Acute kidney failure, unspecified Status: Acute (3) Pleural effusion Code(s): J90 - Pleural effusion, not elsewhere classified Status: Acute - Plan 83-year-old female with: A-fib: w/ RVR, h/o RVR in December 2017, resolved spontaneously, now w/ HR 130's, s/p Cardizem 10mg IV x2, heart rate persistently elevated and the patient was admitted on Cardizem drip. - Discussed with medical and health services manager, Dr. Ramos. Transition to oral Cardizem. Wean off drip as tolerated. -Patient started on Eliquis. Pleural Effusions: Could be secondary to uncontrolled A. fib. C/o SOB w/ exertion, BNP 578, CXR reviewed +mild pleural effusions, s/p Lasix in ER, will continue w/ diuresis as needed, monitor I/O, echo showed preserved EF. - Incentive spirometry. HARITHA: Likely secondary to A. fib. Renal function slightly improved. - Continue to monitor renal functions. Avoid nephrotoxins Discharge Planning: Was considering discharge this afternoon. However the patient is hypoxemic requiring supplemental oxygen. Continue with incentive spirometry throughout the day and wean off oxygen as tolerated. Will consider home oxygen walk test in the morning.
--- NOTE | 2018-07-17 20:42 | ECG ---
Date Performed: 07/16/2018 Time Performed: 17:16:35 PTAGE: 83 years EKG: ATRIAL FIBRILLATION WITH RAPID VENTRICULAR RESPONSE NONSPECIFIC ST & T-WAVE ABNORMALITY ABN ORMAL RHYTHM ECG INTERPRETATION BASED ON A DEFAULT AGE OF 40 YEARS NO PREVIOUS TRACING DOCTOR: Howard Plascencia Interpretating Date/Time 07/17/2018 20:40:54
[2018-07-18 04:06] VITALS: RESP 18
[2018-07-18 04:06] LABS: Hematocrit 27.5 % (35.0-46.0); Hemoglobin 9.1 gm/dL (11.6-15.3); Mean Corpuscular HGB Conc 33.3 % (32.0-36.0); Mean Corpuscular Volume 84.3 fL (80.0-100.0); Mean Platelet Volume 8.7 fL (7.0-11.0); Platelet Count 250 th/mm3 (150-450); Red Blood Count 3.26 mil/mm3 (4.00-5.30); Red Cell Distribution Width 14.1 % (11.6-17.2); White Blood Count 6.3 th/mm3 (4.0-11.0)
[2018-07-18 04:34] LABS: Calcium 8.2 mg/dL (8.5-10.1); Carbon Dioxide 25.4 meq/L (21.0-32.0); Potassium 3.1 meq/L (3.5-5.1)
[2018-07-18] MEDS: dilTIAZem 60 MG Tablet PO SCH ×2 (08:22→12:34)
[2018-07-18] MEDS ORDERED: LORazepam 0.5 MG Tablet PO SCH (09:00)
[2018-07-18] MEDS ORDERED: FLUoxetine 10 MG Capsule PO SCH (09:00)
[2018-07-18] MEDS ORDERED: Magnesium Oxide 400 MG Tablet PO SCH (09:00)
--- NOTE | 2018-07-18 09:28 | P.DS ---
Date of admission: 07/16/18 20:47 Primary care physician: No Primary Care Physician Brief History from admission: HPI from the admitting physician: This is an 83-year-old female with a PMH of HTN and Hyperlipidemia who was referred to the ER from her doctor's office for A. fib with RVR. Pt reports c/ o of SOB and generalized weakness for 2-3 days, here visiting granddaughter who noted lower extremity edema and progressive SOB. Seen by Dr. Torres in office today and found to have A-fib w/ RVR, HR 120's. Pt reports h/o A-fib back in December 2017 while in [facility] she was found to be in A-fib at her doctor's office, however had resolved by the time she got to the ER, not on any medications. Denies chest pain. On arrival, BP 130/83, HR 133, O2 sat 94% on RA, Afebrile. CBC unremarkable. INR 1.0. Creatinine 1.40, no previous labs for comparison. Troponin negative. BNP 578. CXR with atelectasis left lung base, cardiomegaly. CTA Chest no PE, small right lung nodules. S/p Cardizem 10mg IV x2 in ER, remains in A-fib w/ HR 100-110's. Denies any complaints except for SOB w/ exertion. Patient update on day of discharge: Patient reports she is feeling much better. Heart rate is controlled. She is still requiring about half liter of oxygen on nasal cannula. She is eager to go home. DS: Diagnosis - Discharge Diagnosis (1) Atrial fibrillation with RVR Status: Acute (2) HARITHA (acute kidney injury) Status: Acute (3) Pleural effusion Status: Acute DS: Medications - Discharge Medications Prescriptions: apixaban [Eliquis] 2.5 mg PO BID #60 tab diltiazem HCl [Cardizem CD] 240 mg PO DAILY #30 cap DS: Summary Hospital Course: 83-year-old female admitted and treated for the following: A-fib: w/ RVR, h/o RVR in December 2017, resolved spontaneously, now w/ HR 130's, s/p Cardizem 10mg IV x2, heart rate persistently elevated and the patient was admitted on Cardizem drip. - Discussed with office copy selector, Dr. Ramos. Transition to oral Cardizem. Wean off drip as tolerated. -Patient was started on Eliquis. - Her rate is controlled Pleural Effusions: Could be secondary to uncontrolled A. fib. C/o SOB w/ exertion, BNP 578, CXR reviewed +mild pleural effusions, s/p Lasix in ER, will continue w/ diuresis as needed, monitor I/O, echo showed preserved EF. -Patient respiratory status significantly improved requiring minimal amount of supplemental oxygen. She will have a home oxygen walk test done this morning. Based on the results, she will be discharge home with or without oxygen. HARITHA with probable CKD: Likely secondary to A. fib. Renal function stable. Suspect some degree of chronic kidney disease -Advised outpatient follow-up labs with PCP. - Time Spent with Patient Total time spent providing and/or coordinating discharge services: Greater than 30 minutes - Quality: VTE Deep Vein Thrombosis/Pulmonary Embolism Present on Admission: No Exam Vital signs: Vital Signs 07/17/18 10:00 07/17/18 11:00 07/17/18 12:00 Temperature 98.3 F Pulse Rate 92 H 83 80 Respiratory Rate 18 Blood Pressure 126/72 Pulse Oximetry 93 L 07/17/18 13:00 07/17/18 14:00 07/17/18 15:00 Temperature 99 F Pulse Rate 75 79 71 Respiratory Rate 18 Blood Pressure 114/59 L Pulse Oximetry 94 L 07/17/18 16:00 07/17/18 17:00 07/17/18 18:00 Temperature Pulse Rate 86 110 H 70 Respiratory Rate Blood Pressure Pulse Oximetry 07/17/18 19:00 07/17/18 20:00 07/17/18 21:00 Temperature 98.1 F Pulse Rate 67 68 66 Respiratory Rate 18 Blood Pressure 119/64 Pulse Oximetry 95 07/17/18 22:00 07/17/18 23:00 07/18/18 00:00 Temperature 98.5 F Pulse Rate 76 65 80 Respiratory Rate 20 Blood Pressure 125/73 Pulse Oximetry 91 L 07/18/18 01:00 07/18/18 02:00 07/18/18 03:00 Temperature 98.1 F Pulse Rate 68 70 65 Respiratory Rate 18 Blood Pressure 124/65 Pulse Oximetry 94 L 07/18/18 04:00 07/18/18 05:00 07/18/18 06:00 Temperature Pulse Rate 86 78 95 H Respiratory Rate Blood Pressure Pulse Oximetry Intake & Output 07/17/18 07/18/18 07/18/18 18:59 06:59 18:59 Intake Total 2450 / 2450 190 / 190 Output Total 50 / 50 Balance 2450 / 2450 140 / 140 Weight 57 kg Intake: IV 1250 / 1250 NS Inj 1,000 ML @ 50 mls/hr IV. 1000 / 1000 CONT .Q20H FLORI Rx#:[id number] Cardizem Inj 125 MG In NS Inj 250 / 250 100 ML @ 5 MG/HR 5 mls/hr IV. CONT TITRATE PRN Rx#:[id number] Oral 700 / 700 190 / 190 Other 500 / 500 Output: Urine 50 / 50 Other: Other Intake Source Saline Solution # Voids 3 Date of Last Bowel Movement 07/16/18 Narrative: GENERAL: This is a well-nourished, well-developed patient, in no apparent distress. CARDIOVASCULAR: Normal rate and regular rhythm without murmurs, gallops, or rubs. RESPIRATORY: Air movement is fair. Diminished breath sounds bilaterally at the bases. GASTROINTESTINAL: Abdomen soft, non-tender, non-distended. Normal active bowel sounds MUSCULOSKELETAL: Extremities without cyanosis, or edema. NEURO: Alert & Oriented x4 to person, place, time, situation. Moves all ext x4 PSYCH: Appropriate mood and affect. Results Procedures completed during hospitalization: None Labs on day of discharge: Labs from last 24 hours 07/18/18 07/18/18 07/17/18 03:27 03:27 09:24 WBC 6.3 RBC 3.26 L Hgb 9.1 L Hct 27.5 L MCV 84.3 MCH 28.0 MCHC 33.3 RDW 14.1 Plt Count 250 MPV 8.7 Neut % (Auto) Lymph % (Auto) [place] % (Auto) Eos % (Auto) Baso % (Auto) Neut # (Auto) Lymph # (Auto) [place] # (Auto) Eos # (Auto) Baso # (Auto) WBC Differential Differential Comment Sodium 141 143 Potassium 3.1 L 3.3 L Chloride 105 104 Carbon Dioxide 25.4 27.7 Anion Gap 11 11 BUN 20 H 16 Creatinine 1.50 H 1.34 H Estimated GFR 33 L 38 L Random Glucose 130 H 127 H Calcium 8.2 L 8.5 Total Bilirubin 0.7 AST 19 ALT 32 Alkaline Phosphatase 102 Total Protein 7.1 D Albumin 3.3 L 07/17/18 09:24 WBC 5.4 RBC 3.38 L Hgb 9.6 L Hct 28.7 L MCV 84.9 MCH 28.3 MCHC 33.3 RDW 14.1 Plt Count 271 MPV 8.8 Neut % (Auto) 72.9 H Lymph % (Auto) 14.8 [place] % (Auto) 9.6 H Eos % (Auto) 2.1 Baso % (Auto) 0.6 Neut # (Auto) 3.9 Lymph # (Auto) 0.8 L [place] # (Auto) 0.5 Eos # (Auto) 0.1 Baso # (Auto) 0.0 WBC Differential . Differential Comment Auto diff final Sodium Potassium Chloride Carbon Dioxide Anion Gap BUN Creatinine Estimated GFR Random Glucose Calcium Total Bilirubin AST ALT Alkaline Phosphatase Total Protein Albumin - Impressions ITS Impressions Chest X-Ray 07/16/18 17:07 CONCLUSION: 1. Senescent changes with mild airspace disease at the left lung base which may reflect atelectasis. 2. Compensated cardiomegaly. Chest CTA 07/16/18 18:22 CONCLUSION: 1. No pulmonary embolism 2. Small right lung nodules can be followed if persistent following resolution of the patient's acute findings Discharge Plan - Discharge Disposition Patient Disposition: 01 Discharge Home - Discharge Condition Condition: Good - Discharge Order Discharge Orders: Discharge Order (Routine); Ordered 07/18/18 Ordered By: Marine Reza - Physicians Team Primary Care Provider: Primary Care Lauyrn,Alejandra Attending Provider: Marine Reza Other Providers: Reggie Gonzales MD
[2018-07-18] MEDS: Senna/Docusate Sodium 8.6/50 MG Tablet PO SCH (11:28)
[2018-07-18 12:50] VITALS: BP 104/55; TEMP 98.2; O2SAT 94
[2018-07-18 13:29] VITALS: PULSE 80
--- NOTE | 2018-07-18 14:45 | P.PNCA ---
Subjective Interval history: No events overnight Afib controlled Medications and Allergies Allergies Allergy/AdvReac Type Severity Reaction Status Date / Time oxycodone AdvReac Severe Vomiting Verified 07/16/18 17:34 Home Medications Medication Instructions Recorded Confirmed Type atorvastatin 20 mg PO DAILY 07/17/18 07/17/18 History fluoxetine 10 mg PO DAILY 07/17/18 07/17/18 History furosemide 20 mg PO BID 07/17/18 07/17/18 History lorazepam 0.5 mg PO DAILY 07/17/18 07/17/18 History magnesium oxide 250 mg PO DAILY 07/17/18 07/17/18 History sitagliptin [Januvia] 50 mg PO DAILY 07/17/18 07/17/18 History Physical Exam Vital signs: Vital Signs 07/17/18 15:00 07/17/18 16:00 07/17/18 17:00 Temperature 99 F Pulse Rate 71 86 110 H Respiratory Rate 18 Blood Pressure 114/59 L Pulse Oximetry 94 L Pulse Oximetry [Exertion on Room Air] Pulse Oximetry [Resting on Room Air] Pulse Oximetry [Resting with Oxygen] 07/17/18 18:00 07/17/18 19:00 07/17/18 20:00 Temperature 98.1 F Pulse Rate 70 67 68 Respiratory Rate 18 Blood Pressure 119/64 Pulse Oximetry 95 Pulse Oximetry [Exertion on Room Air] Pulse Oximetry [Resting on Room Air] Pulse Oximetry [Resting with Oxygen] 07/17/18 21:00 07/17/18 22:00 07/17/18 23:00 Temperature 98.5 F Pulse Rate 66 76 65 Respiratory Rate 20 Blood Pressure 125/73 Pulse Oximetry 91 L Pulse Oximetry [Exertion on Room Air] Pulse Oximetry [Resting on Room Air] Pulse Oximetry [Resting with Oxygen] 07/18/18 00:00 07/18/18 01:00 07/18/18 02:00 Temperature Pulse Rate 80 68 70 Respiratory Rate Blood Pressure Pulse Oximetry Pulse Oximetry [Exertion on Room Air] Pulse Oximetry [Resting on Room Air] Pulse Oximetry [Resting with Oxygen] 07/18/18 03:00 07/18/18 04:00 07/18/18 05:00 Temperature 98.1 F Pulse Rate 65 86 78 Respiratory Rate 18 Blood Pressure 124/65 Pulse Oximetry 94 L Pulse Oximetry [Exertion on Room Air] Pulse Oximetry [Resting on Room Air] Pulse Oximetry [Resting with Oxygen] 07/18/18 06:00 07/18/18 07:00 07/18/18 08:00 Temperature 98.3 F Pulse Rate 95 H 90 98 H Respiratory Rate 18 Blood Pressure 146/75 H Pulse Oximetry 93 L Pulse Oximetry [Exertion on Room Air] Pulse Oximetry [Resting on Room Air] Pulse Oximetry [Resting with Oxygen] 07/18/18 09:00 07/18/18 10:00 07/18/18 11:00 Temperature 98.2 F Pulse Rate 102 H 96 H 80 Respiratory Rate 18 Blood Pressure 104/55 L Pulse Oximetry 94 L Pulse Oximetry [Exertion on Room Air] Pulse Oximetry [Resting on Room Air] Pulse Oximetry [Resting with Oxygen] 07/18/18 11:27 07/18/18 12:00 Temperature Pulse Rate 80 Respiratory Rate Blood Pressure Pulse Oximetry Pulse Oximetry [Exertion on Room Air] 91 L Pulse Oximetry [Resting on Room Air] 94 L Pulse Oximetry [Resting with Oxygen] 95 Intake & Output 07/17/18 07/18/18 07/18/18 18:59 06:59 18:59 Intake Total 2450 / 2450 190 / 190 Output Total 50 / 50 Balance 2450 / 2450 140 / 140 Weight 57 kg Intake: IV 1250 / 1250 NS Inj 1,000 ML @ 50 mls/hr IV. 1000 / 1000 CONT .Q20H [facility] Rx#:[id number] Cardizem Inj 125 MG In NS Inj 250 / 250 100 ML @ 5 MG/HR 5 mls/hr IV. CONT TITRATE PRN Rx#:[id number] Oral 700 / 700 190 / 190 Other 500 / 500 Output: Urine 50 / 50 Other: Other Intake Source Saline Solution # Voids 3 Date of Last Bowel Movement 07/16/18 Narrative: GENERAL: This is a well-nourished, well-developed patient, in no apparent distress. CARDIOVASCULAR: Normal rate and regular rhythm without murmurs, gallops, or rubs. RESPIRATORY: Air movement is fair. Diminished breath sounds bilaterally at the bases. GASTROINTESTINAL: Abdomen soft, non-tender, non-distended. Normal active bowel sounds MUSCULOSKELETAL: Extremities without cyanosis, or edema. NEURO: Alert & Oriented x4 to person, place, time, situation. Moves all ext x4 PSYCH: Appropriate mood and affect. Results 07/18/18 03:27 07/18/18 03:27 Cardiac Enzymes 07/16/18 07/16/18 07/16/18 Range/Units 17:20 17:20 23:12 AST 26 (15-37) U/L CK-MB (CK-2) 3.0 (0.5-3.6) ng/mL Troponin I Less than 0.02 L Less than 0.02 L (0.02-0.05) ng/mL B-Natriuretic Peptide 578 H (0-100) pg/mL 07/17/18 07/17/18 Range/Units 05:18 09:24 AST 19 (15-37) U/L CK-MB (CK-2) (0.5-3.6) ng/mL Troponin I Less than 0.02 L (0.02-0.05) ng/mL B-Natriuretic Peptide (0-100) pg/mL Coagulation 07/16/18 07/16/18 Range/Units 17:20 17:20 PT 10.6 (9.8-11.6) sec APTT 25.0 (24.3-30.1) sec B-Natriuretic Peptide 578 H (0-100) pg/mL CBC 07/16/18 07/17/18 07/18/18 Range/Units 17:20 09:24 03:27 WBC 7.9 5.4 6.3 (4.0-11.0) th/mm3 RBC 3.75 L 3.38 L 3.26 L (4.00-5.30) mil/mm3 Hgb 10.7 L 9.6 L 9.1 L (11.6-15.3) gm/dL Hct 32.5 L 28.7 L 27.5 L (35.0-46.0) % Plt Count 307 271 250 (150-450) th/mm3 Neut # (Auto) 5.4 3.9 (1.8-7.7) th/mm3 Lymph # (Auto) 1.6 0.8 L (1.0-4.8) th/mm3 Traill # (Auto) 0.8 0.5 (0.0-0.9) th/mm3 Eos # (Auto) 0.1 0.1 (0.0-0.4) th/mm3 Baso # (Auto) 0.1 0.0 (0.0-0.2) th/mm3 Comprehensive Metabolic Panel 07/16/18 07/17/18 07/18/18 Range/Units 17:20 09:24 03:27 Sodium 141 143 141 (136-145) meq/L Potassium 3.7 3.3 L 3.1 L (3.5-5.1) meq/L Chloride 104 104 105 (98-107) meq/L Carbon Dioxide 25.3 27.7 25.4 (21.0-32.0) meq/L BUN 18 16 20 H (7-18) mg/dL Creatinine 1.40 H 1.34 H 1.50 H (0.50-1.00) mg/dL Calcium 8.7 8.5 8.2 L (8.5-10.1) mg/dL AST 26 19 (15-37) U/L ALT 41 32 (10-53) U/L Alkaline Phosphatase 114 102 (45-117) U/L Total Protein 8.2 7.1 D (6.4-8.2) g/dL Albumin 3.8 3.3 L (3.4-5.0) g/dL Intake and Output 07/17/18 07/18/18 07/18/18 22:59 06:59 14:59 Intake Total 2200 / 2200 190 / 190 Output Total 50 / 50 Balance 2200 / 2200 140 / 140 Intake: IV 1000 / 1000 NS Inj 1,000 ML @ 50 mls/hr IV. 1000 / 1000 CONT .Q20H [facility] Rx#:[id number] Oral 700 / 700 190 / 190 Other 500 / 500 Output: Urine 50 / 50 Other: Other Intake Source Saline Solution # Voids 3 Date of Last Bowel Movement 07/16/18 Weight 57 kg - Imaging and Cardiology Imaging: Impressions Chest X-Ray 07/16/18 17:07 CONCLUSION: 1. Senescent changes with mild airspace disease at the left lung base which may reflect atelectasis. 2. Compensated cardiomegaly. Chest CTA 07/16/18 18:22 CONCLUSION: 1. No pulmonary embolism 2. Small right lung nodules can be followed if persistent following resolution of the patient's acute findings Assessment and Plan - Assessment (1) Atrial fibrillation with RVR Code(s): I48.91 - Unspecified atrial fibrillation Status: Acute (2) Pleural effusion Code(s): J90 - Pleural effusion, not elsewhere classified Status: Acute (3) Pulmonary nodule Code(s): R91.1 - Solitary pulmonary nodule Status: Acute (4) Shortness of breath Code(s): R06.02 - Shortness of breath Status: Acute - Plan 1) AFib with RVR Probable new onset, although question of previous event a few months ago Stable on Cardizem CHADSVASc = 5 Started on Eliquis 2.5mg BID (age > 80, weight < 60kg) 2) EF 55-60%, mild to moderate MR, moderate TR 3) Fluid balance positive 2.5L Dose of Lasix before discharge 4) Cardiovascularly stable for discharge Will follow up with me in the office in 2-3 weeks as she won't be back to [place] until the 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
== END 2018-07-18 13:26 | disposition home or self-care (01) ==
LOC: NEPE 16:37 → NEDA 20:47 → HCIS 22:50
PROVIDERS: ADMIT Family Medicine; ATTEND Family Medicine